=== PATIENT | female | born 1950 | race Caucasian/White ===

== ENCOUNTER → 2016-07-27 | Outpatient (CLI) | payer MEDICARE, OTHER | LOC: MAMO 10:00 | DX: Z12.31 Encounter for screening mammogram for malignant neoplasm of breast (principal) | CPT/HCPCS: G0202 ==

== ENCOUNTER 2020-04-21 13:54 | Emergency (ER) | payer MEDICARE, OTHER ==
[~2020-04-21 13:54] MED LIST: ALL DAY ALLERGY10 M3 PO; ASPIRIN325 MG PO; CALCIUM600 MG PO; KRILL OIL500 MG PO; LIPITOR TAB 1010 MG PO; LOPRESSOR 50 MG50 MG PO; MELOXICAM7.5 MG PO; MUCUS RELIEF400 MG PO; NEXIUM20 M1 PO; OXYBUTYNIN CHLOR5 MG PO; RANITIDINE HCL300 MG PO; STOOL SOFTENER100 M1 PO; SYMBICORT 80-10.2 GM INH; TRIAMTERENE-HC1 EACH PO; VEGETARIAN GLU750 MG PO; VITAMIN B-121000 MC2 PO; VITAMIN D250000 UNIT PO; ZYLOPRIM 100 M100 MG PO
[2020-08-05] MEDS ORDERED: BREZTRI AEROS10.7 GM INH (07:26)
== END 2020-04-21 17:50 | disposition home or self-care (01) ==
LOC: ER1 13:54
DX: U07.1 COVID-19 (principal)
CPT/HCPCS: 99283; M0239

== ENCOUNTER → 2020-08-05 | Day surgery (SDC) | payer MEDICARE, OTHER ==
[~2020-08-05] MED LIST changes: +BREZTRI AEROS10.7 GM INH
== END | disposition home or self-care (01) ==
LOC: OR 06:31
DX: Z12.11 Encounter for screening for malignant neoplasm of colon (principal); I10 Essential (primary) hypertension; E11.9 Type 2 diabetes mellitus without complications; J45.909 Unspecified asthma, uncomplicated; K21.9 Gastro-esophageal reflux disease without esophagitis; E78.2 Mixed hyperlipidemia; M19.90 Unspecified osteoarthritis, unspecified site; M81.0 Age-related osteoporosis without current pathological fracture; Z88.8 Allergy status to other drugs, medicaments and biological substances; Z79.82 Long term (current) use of aspirin; Z79.899 Other long term (current) drug therapy
CPT/HCPCS: J2704; J7030

== ENCOUNTER → 2020-09-21 | Outpatient (CLI) | payer MEDICARE, OTHER ==
[~2020-09-21] VITALS: Ht 162.6 cm; Wt 93.4 kg
== END ==
LOC: OPSV 11:00
DX: M81.0 Age-related osteoporosis without current pathological fracture (principal)
CPT/HCPCS: 96372

== ENCOUNTER → 2021-02-15 | Outpatient (CLI) | payer MEDICARE, OTHER | LOC: ECHO 02-09 08:30 → HEART 5 02-09 09:15 → ECHO 02-13 09:00 → NM 02-14 10:00 → ECHO 09:05 → NM 10:00 | DX: I48.91 Unspecified atrial fibrillation (principal); R94.31 Abnormal electrocardiogram [ECG] [EKG]; I10 Essential (primary) hypertension; E11.9 Type 2 diabetes mellitus without complications; E78.2 Mixed hyperlipidemia; I08.3 Combined rheumatic disorders of mitral, aortic and tricuspid valves; I48.92 Unspecified atrial flutter | CPT/HCPCS: ECHO; 78452; 93306; A9502; J2785 ==

== ENCOUNTER → 2021-03-24 | Outpatient (CLI) | payer MEDICARE, OTHER ==
[~2021-03-24] VITALS: Ht 160 cm; Wt 89.4 kg
== END ==
LOC: OPSV 10:00
DX: M81.0 Age-related osteoporosis without current pathological fracture (principal)
CPT/HCPCS: 96372

== ENCOUNTER → 2021-10-20 | Outpatient (CLI) | payer MEDICARE ==
[~2021-10-20] VITALS: Ht 160 cm; Wt 88.5 kg
== END ==
LOC: OPSV 12:00
DX: M81.0 Age-related osteoporosis without current pathological fracture (principal)
CPT/HCPCS: 96372